=== PATIENT | female | born 1985 ===

== ENCOUNTER 2024-09-09 18:10 | Inpatient (IN) | payer BC ==
[~2024-09-09] VITALS: Ht 165.1 cm; Wt 60.1 kg
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
[2024-09-10 03:49] VITALS: BP 119/71
--- NOTE | 2024-09-10 04:21 | NUR ---
SHIFT SUMMARY UPDATE PT HAVING DIFFICULTY STAYING ASLEEP. SHE USED THE SENSORY ROOM, RECEIVED CHAMOMILE TEA AND READ A BOOK BEFORE FALLING BACK TO SLEEP FOR A SHORT PERIOD OF TIME. SHE RETURNED TO HER ROOM AND QUICKLY FELL BACK ASLEEP BUT WAS UP AGAIN A FEW HOURS LATER. PT HAS REMAINED CALM AND COOPERATIVE WITH CARE. Q15 MINUTE CHECKS TO CONTINUE BY STAFF PER UNIT PROTOCOL.
[2024-09-10] MEDS ORDERED: OLANZapine ODT 10 MG Tab MM PRN (07:50)
[2024-09-10] MEDS ORDERED: Ondansetron 4 MG SoluTab MM PRN (07:55)
[2024-09-10] MEDS ORDERED: Melatonin 3 MG Tab PO PRN (07:55)
[2024-09-10] MEDS ORDERED: Polyethylene Glycol 3350 17 gm PO PRN (07:55)
[2024-09-10] MEDS ORDERED: LORazepam 2 MG Tab PO PRN (07:55)
[2024-09-10] MEDS ORDERED: LORazepam 2 MG/ML 1ML Injection IM PRN (07:55)
[2024-09-10] MEDS ORDERED: Aluminum Hydroxide 320MG/5ML 473 ML PO PRN (07:55)
[2024-09-10] MEDS ORDERED: Haloperidol Lactate Inj. 5 MG/ML Injection IM PRN (08:00)
[2024-09-10] MEDS ORDERED: Calcium Carbonate 500 MG Tab Chew PO PRN (08:00)
[2024-09-10] MEDS ORDERED: Ibuprofen 600 MG Tab PO PRN (08:00)
[2024-09-10] MEDS ORDERED: FLU VACC TS2024-25(6MOS UP)/PF 45 MCG/0.5 ML SYRINGE IM ONE (08:00)
[2024-09-10] MEDS ORDERED: DiphenhydrAMINE HCl 50 MG Cap PO PRN (08:00)
[2024-09-10] MEDS ORDERED: TraZODone HCl 50 MG Tab PO PRN (08:00)
[2024-09-10] MEDS ORDERED: Acetaminophen 325 MG TABLET PO PRN (08:00)
[2024-09-10] MEDS ORDERED: DiphenhydrAMINE HCl 50 MG/ML 1ML Vial IV PRN (08:00)
[2024-09-10] MEDS ORDERED: HydrOXYzine Pamoate 50 MG Cap PO PRN (08:05)
[2024-09-10] MEDS ORDERED: Haloperidol 5 MG Tab PO PRN (08:05)
[2024-09-10 08:10] VITALS: BP 110/65
[2024-09-10] MEDS ORDERED: Multivitamins 1 Tab PO SCH (09:00)
[2024-09-10] MEDS ORDERED: Sertraline HCl 50 MG Tab PO SCH (10:00)
--- NOTE | 2024-09-10 10:36 | NUR ---
ORDERS TO RESTART PT ZOLOFT RX, PT TO GROUP AT THIS TIME.
[2024-09-10] MEDS ORDERED: Nicotine 7 MG PATCH TOP ONE (11:05)
[2024-09-10 21:16] VITALS: BP 1432/84
--- NOTE | 2024-09-11 04:28 | NUR ---
SHIFT SUMMARY PT IN BED AT THE BEGINNING OF MY SHIFT. REPORTED SHE IS FEELING BETTER AFTER GETTING MORE SLEEP. SHE DENIES ANY SI, HI, OR AVH. PT UP A FEW TIMES DURING THE NIGHT. RECEIVED PRN TRAZODONE PER REQUEST. SHE HAS BEEN SLEEPING MOST OF THE NIGHT. Q15 MINUTE CHECKS TO CONTINUE PER UNIT PROTOCOL.
[2024-09-11 08:12] VITALS: BP 130/83
[2024-09-11] MEDS ORDERED: Nicotine 7 MG PATCH TOP SCH (09:00)
[2024-09-11 16:00] VITALS: BP 128/84
--- NOTE | 2024-09-11 17:17 | NUR ---
PT HAS BEEN UP AND AWAKE TODAY, STATES SHE SLEPT "BETTER" THAN THE PREVIOUS NIGHT. PT HAS BEEN INVOLVED WITH THE [facility] AND GROUP ACTIVITIES, SHE IS INDEPENDENT IN HER ADL'S, SHE IS ABLE TO MAKE HER NEEDS KNOW, SHE IS COMPLIANT WITH MEDICATIONS AND CARE.
[2024-09-11 20:58] VITALS: BP 126/87
[2024-09-11] MEDS ORDERED: QUEtiapine Fumarate 50 MG TAB PO SCH (21:00)
--- NOTE | 2024-09-11 21:30 | NUR ---
Shift Summary: Night 09/11/24 Received Pt in her room at the start of shift. Discussed plan for the evening, with which Pt was in agreement. Pt denied SI/HI/AVH. Endorsed anxiety 5/10; endorsed depression 5/10. Mood downcast, affect congruent. Appropriate eye contact. Pt denied pain and physical complaints. Pt verbalized she has utilized herbs in the past to assist with her mental status; discussed with her the possibility of herbs interacting with prescription meds. She verbalized intent to speak with her oupt provider prior to adding any herbal treatments to her home routine. Pt was med compliant; provided PRNs (see MAR) to assist with sleeplessness. After receiving meds and snack, Pt retired to bed without complications.
--- NOTE | 2024-09-12 04:21 | NUR ---
Shift: Night 09/11/24 Received Pt at 1900 in her room. Pt denied SI/HI/AVH; endorsed anxiety 5/10 and depression 5/10. She participated in evening wrap-up group during snack. Interacted appropriately with peers and staff. Pt was med compliant; received PRNs (see MAR) for sleeplessness. She retired to bed after med pass, and rested intermittently throughout the night. Multiple times she awoke due to experiencing nightmares. Pt was willing to attempt activities to promote rest, such as listening to music. No complications.
[2024-09-12 07:57] VITALS: BP 121/76
--- NOTE | 2024-09-12 09:35 | NUR ---
NURSE NOTE: PT IS A&O X4, INDEPENDENT WITH ADL'S. PT GETS TEARFUL WHEN ASKED HOW SHE IS FEELING AND SHOWS CONCERN ABOUT HER LIVING SITUATION ON D/C AND HER DAUGHTER'S AGENDA THAT SHE IS NOT ABLE TO ASSIST WITH WHILE ADMITTED. STATES SHE DID NOT SLEEP WELL LAST NIGHT AND WAS FREQUNTLY WAKING UP. SHE DENIES ANY HI/SI BUT C/O DEPRESSION D/T CURRENT FINANCIAL AND LIVING SITUATION. SHE IS CONCERENED ABOUT MISSING HER APPOINTMENT FOR FOOD BENEFITS. PT MORE CALM AFTER NEW SCRUBS AND PROVISIONS SUPPLIED FOR SHOWER. DENIES ANY HAULLUCINATINS.
--- NOTE | 2024-09-12 17:53 | NUR ---
SHIFT SUMMARY: PT BEGAN THE DAY TEARFUL WITH 5-6/10 DEPRESSION AND 3/10 ANXIETY, EXPRESSING FEELINGS OF WORRY ABOUT FINDING HOUSING AND ABOUT HER KIDS' NEEDS SHE IS UNABLE TO PROVIDE. TOWARDS THE END OF THE SHIFT PT WAS GETTING EXTREMELY TEARFUL AND INCRASED DEPRESSION. STATES SHE FEELS IT WOULD BE BEST IF SHE DISAPPEARED FOREVER. SPOKE WITH HER IN PRIVATE WITH CARLOS LAMAR AFTER SHE HAD A CONVERSATION WITH CARMEN ALBRIGHT. PT WAS ABLE TO IDENTIFY CALMING TECHNIQUES AND INTERVENTIONS THAT HELP HER AT HOME AND STATES LIMITS TO HER ABILITY TO PERFORM MOST OF THEM WHILE BEING AN INPATIENT AND SHE FEELS SHE WOULD BE COPING BETTER IF SHE WAS AT HOME WHERE SHE COULD GO FOR WALKS, LISTEN TO MUSIC, CLEAN HER HOUSE, AND BE WITH HER CHILDREN. SHE WAS ABLE TO CALL HER MOTHER ON THE PHONE A CALMING INTERVENTION. AFTER THE CALL PT WAS NO LONGER TEARFUL AND AMBULATING THE HALLWAYS. PT WAS OFFERED PRN HYDROXYZINE AND SHE DECLINED STATING SHE FEELS MUCH BETTER AFTER TALKING WITH HER MOTHER AND FEELS SHE DOESN'T NEED IT AT THIS TIME. SHE IS CURRENTLY IN THE GROUP ROOM DECORATING A [employer] STOCKING, CALM AND COOPERATIVE.
[2024-09-12] MEDS ORDERED: Cefdinir 300 MG Cap PO SCH (21:00)
--- NOTE | 2024-09-12 22:22 | NUR ---
Shift Assessment: Night 09/12/24 Received Pt at 1900. Denied SI/HI/AVH. Endorsed depression /10, and endorsed anxiety 3/10. Mood downcast, affect congruent; brightened with contact. Appropriate eye contact. Discussed her ongoing concerns with housing and child custody are leading to feelings of hopelessness; reviewed multiple coping skills to help reduce the sense of feeling overwhelmed. Pt attended evening wrap-up group during snack. Med compliant; received multiple PRNs (see MAR) for sleeplessness. She participated in group activities (card games and watching tv,) then retired to bed for the evening. Plan: Continue to provide safe, therapeutic environment in which to work on TP goals. Continue to encourage Pt to use different coping skills to help with emotional stability. Continue discharge planning.
[2024-09-13 02:56] VITALS: BP 134/79
--- NOTE | 2024-09-13 04:19 | NUR ---
Shift Summary: Night 09/12/24 Pt was in the dayroom working on a puzzle at the start of shift (1899.) Relocated to a more quiet location for assessment. Pt denied SI/HI/AVH; endorsed depression 10 and anxiety 3/10. Discussed plan for the evening, with which she was in agreement. Discussed coping skills to use throughout the evening. SHe participated in evening group during snack. Med compliant; received multiple PRNs (see MAR) for sleeplessness. She played card games after med pass, then retired to bed for the evening. She awoke once stating she had a nightmare, but then returned to resting shortly thereafter. Rested with eyes closed, resps even and unlabored for the remainder of the night. No complications.
[2024-09-13 08:57] VITALS: BP 132/95
[2024-09-13] MEDS ORDERED: Sertraline HCl 50 MG Tab PO SCH (09:00)
[2024-09-13] MEDS ORDERED: TraZODone HCl 100 MG Tab PO PRN (11:00)
--- NOTE | 2024-09-13 17:27 | NUR ---
SHIFT SUMMARY: PT ACTIVELY PARTICIPATED IN ALL MEALS AND ACTIVITIES TODAY. SHE EXPRESSED SOME CONCERN R/T HER LIVING SITUATION BUT WAS NOT TEARFUL TODAY. SHE STATED SOME ANXIETY BUT SHE FEELS BETTER TODAY THAN YESTERDAY AND FEELS IT WAS D/T HER GETTING SOME SLEEP LAST NIGHT. SHE WAS EDUCATED ON HER MEDICATION CHANGES NAD STATES UNDERSTANDING. PT HAD A PHONE CALL TO HER FAMILY. SHE ACTIVELY PARTICIPATED IN THE GROUP ROOM WITH HER PEERS. SHE IS CURRENTLY IN [facility].
[2024-09-13 21:03] VITALS: BP 129/75
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
[2024-09-14 08:03] VITALS: BP 119/75
[2024-09-14] MEDS ORDERED: SERT50 PO (14:03)
[2024-09-14] MEDS ORDERED: CEFD300 PO (14:04)
[2024-09-14] MEDS ORDERED: NICODERM CQ1 EA10 TOP (14:04)
[2024-09-14] MEDS ORDERED: Seroquel Xr50 MG PO (14:04)
--- NOTE | 2024-09-14 14:47 | NUR ---
Pt A/O x4; pleasant and cooperative with care. She denies SI, HI, or any hallucinations at this time. She reports feeling overwhelmed and lonely. She recently lost her housing due to a break up. Her children are currently with her ex and pt currently resides in [place], [place]. She just feels overwhelmed about everything she needs to do and was tearful this AM. She has been participating in groups, meals, and spoke with HARDWARE ENGINEER today. It was concluded that pt could stay with her mother until she is able to figure out housing. She has a PCP and a follow up appointment has been made. Pt's PCP also to help with referal to behavioral health. Pt reports that she would like to see a therapist outpatient and feels she would benefit from this. Pt's medications faxed to [facility] in [place] and an Uber was called to take the pt to her car in [place]. Discharge instructions gone over with pt and she verbalized understanding.
== END 2024-09-14 14:55 | disposition home or self-care (01) | DRG 885 ==
LOC: BHU 18:10
PROVIDERS: ADMIT Psychiatry & Neurology Psychiatry
DX: F33.3 Major depressive disorder, recurrent, severe with psychotic symptoms (principal); R45.851 Suicidal ideations; Z59.00 Homelessness unspecified; F43.21 Adjustment disorder with depressed mood; Z79.899 Other long term (current) drug therapy
CPT/HCPCS: A9270